=== PATIENT | female | born 1985 | race Caucasian/White ===

== ENCOUNTER → 2024-03-13 18:01 | Outpatient (REF) | payer BC, SELFPAY | LOC: WDC 18:01 | PROVIDERS: ATTENDING PHYSICIAN Nurse Practitioner Family | DX: Z12.31 Encounter for screening mammogram for malignant neoplasm of breast (principal) | CPT/HCPCS: 77063; 77067 ==

== ENCOUNTER → 2024-03-22 08:54 | Outpatient (REF) | payer BC, SELFPAY | LOC: WDC 08:54 | PROVIDERS: ATTENDING PHYSICIAN Nurse Practitioner Family | DX: R92.8 Other abnormal and inconclusive findings on diagnostic imaging of breast (principal) | CPT/HCPCS: 76642 ==

== ENCOUNTER → 2025-03-18 18:14 | Outpatient (REF) | payer BC, SELFPAY | LOC: WDC 18:14 | PROVIDERS: ATTENDING PHYSICIAN Nurse Practitioner Family | DX: Z12.31 Encounter for screening mammogram for malignant neoplasm of breast (principal) | CPT/HCPCS: 77063; 77067 ==